=== PATIENT | female | born 1955 | race Caucasian/White ===

== ENCOUNTER 2021-06-18 05:15 | Day surgery (SDC) | payer BC, SELFPAY ==
[~2021-06-18] VITALS: Ht 154.9 cm; Wt 50.3 kg
[2021-06-18] MEDS ORDERED: fentaNYL CITRATE/PF 100 MCG/2 ML AMP ONE (07:57)
[2021-06-18] MEDS ORDERED: MIDAZOLAM HCL 5 MG/5 ML VIAL ONE (07:58)
[2021-06-18] MEDS ORDERED: ONDANSETRON HCL 4 MG/2 ML VIAL IVP ONE (09:00)
[2021-06-18] MEDS ORDERED: ONDANSETRON HCL 4 MG/2 ML VIAL ONE (09:01)
[2021-06-18] MEDS ORDERED: METOCLOPRAMIDE HCL 10 MG/2 ML VIAL ONE (10:56)
[2021-06-18] MEDS ORDERED: METOCLOPRAMIDE HCL 10 MG/2 ML VIAL IVP ONE (11:00)
[2021-06-18 15:46] VITALS: BP_SYST 145
== END 2021-06-18 12:30 | disposition home or self-care (01) ==
LOC: SDS 05:15 → SMU 05:15 → SDS 12:30
PROVIDERS: ATTEND Surgery
DX: K57.32 Diverticulitis of large intestine without perforation or abscess without bleeding (principal); Z20.822 Contact with and (suspected) exposure to COVID-19
CPT/HCPCS: 36415; 45330; 87426; 99152; 99153; G0378; J2250; J2405; J2765; J3010; U0003